=== PATIENT | male | born 1985 | race Caucasian/White ===

== ENCOUNTER 2018-02-13 14:09 | Emergency (ER) | payer BC, SELFPAY ==
[2018-02-13 14:11] VITALS: BP 139/104; PULSE 70; RESP 16; TEMP 36.4; O2SAT 98; BMI 31.9
--- NOTE | 2018-02-13 14:26 | EKG12_ITS ---
Test Reason : DIZZINESS Blood Pressure : / mmHG Vent. Rate : 075 BPM Atrial Rate : 075 BPM P-R Int : 144 ms QRS Dur : 084 ms QT Int : 374 ms P-R-T Axes : 034 058 034 degrees QTc Int : 417 ms Sinus rhythm with marked sinus arrhythmia Otherwise normal ECG Confirmed by CRISTINA SQUIRES ([id number]), assistant editor TOMMY SANTANA ([id number] on 02/15/2018 2:22:30 PM Referred By: KATIE Confirmed By:CRISTINA SQUIRES
[2018-02-13] MEDS: 0.9% Normal Saline 1,000 ML 1000 ML IV (14:30)
[2018-02-13 14:31] LABS: Bedside Glucose 121 mg/dL (70-110)
[2018-02-13 14:38] VITALS: BP 101/68; BP 111/81; BP 112/80; PULSE 71; PULSE 74; PULSE 76
[2018-02-13 14:54] LABS: Absolute Lymphocyte Count 1.91 X10^3/ul (0.83-4.51); Absolute Neutrophil Count 6.8 X10^3/uL (2.0-7.7); Basophil# 0.01 X10^3/uL; Basophil% 0.1 % (0-1); Eosinophil# 0.08 X10^3/uL; Eosinophils% 0.8 % (0-5); Hematocrit 47.2 % (40-54); Hemoglobin 16.7 g/dl (13.0-16.5); Lymphocyte # 1.91 X10^3/ul (4.0); Lymphocyte % 19.5 % (19-41); Mean Corp Hgb Conc 35.4 g/gl (32-36); Mean Corpuscular Hgb 31.6 pg (27.0-32.0); Mean Corpuscular Volume 89.2 fL (80-94); Mean Platelet Vol. 8.7 fl (6.2-12.0); Monocyte# 0.99 X10^3/uL; Monocyte% 10.1 % (0-10); Neutrophil # 6.78 X10^3/uL (2.7-7.7); Neutrophil % 69.4 % (47-70); POSITIVE COUNT NO; POSITIVE DIFFERENTIAL NO; POSITIVE MORPHOLOGY NO; Platelet Count 203 K/mm3 (150-450); RBC Distribution Width CV 11.8 % (11.6-14.6); RBC Distribution Width SD 37.9 fl (35.1-43.9); Red Blood Count 5.29 M/mm3 (4.6-6.2); White Blood Count 9.8 K/mm3 (4.4-11.0)
[2018-02-13 15:03] LABS: Anion Gap 7 (5-15); BUN 13 mg/dL (7-18); BUN/Creat Ratio 11.9 RATIO (10-20); Calcium,Total 8.2 mg/dL (8.5-10.1); Chloride 102 mmol/L (98-107); Creatinine, Serum 1.09 mg/dL (0.70-1.30); EST Glomerular Filtration Rate 84 mL/min (>60); Est Glom Filt Rate - Afr Amer 101 mL/min (>60); Glucose 121 mg/dL (74-106); Potassium 3.5 mmol/L (3.5-5.1); Sodium Level 137 mmol/L (136-145)
[2018-02-13 15:30] VITALS: BP 115/87; PULSE 70; RESP 17; O2SAT 98
--- NOTE | 2018-02-13 15:35 | ED.VISSUMM ---
- ER Visit Summary Date of Service: 02/13/18 Chief Complaint: Lightheaded History of Present Illness: The patient is a 32 M who goes to [facility] in [place]. Reports that he was driving down here and became lightheaded while he was driving. He actually reports that is improved with standing. He denies any chest pain, shortness of breath, or palpitations. Reports he does feel slightly nauseated. Complains of a headache that is 3 of 10 severity. He has had had similar headaches previously. His review of systems is otherwise negative. Physical Examination: Vitals: Stable. Afebrile. General: Well-nourished and well-developed. Head: Normocephalic atraumatic. Neck: Supple, no lymphadenopathy. No JVD. Nontender. Cardiovascular: Regular rate and rhythm. No murmurs. Respiratory: No respiratory distress. Clear to auscultation bilaterally. Abdominal: Soft, nontender, nondistended, normal bowel sounds. No guarding, rebound, or peritoneal signs. Back: Nontender. Extremities: Nontender, no edema. Skin: Normal color, no rash. Neurologic: Alert and oriented ?3. Cranial nerves II through XII are intact. Normal strength and sensation. Psych: Normal affect. Test Results: EKG shows sinus arrhythmia at a rate of 75 with no acute changes. CBC is marked for hemoglobin of 16.7. Chem-7 more for glucose 121 calcium 8.2. Emergency Department Course and Treatment: Patient had negative orthostatic vital signs. He is given a liter of normal saline and his symptoms resolved. Treatment Plan: Patient will be discharged instructions to push fluids. Follow-up his primary care physician 1-2 days if not improving. Return to the emergency department for any worsening symptoms. Disposition: To home in improved and stable condition. Impression: 1. Near syncope, uncertain cause. This note was generated with [employer] software. It may contain incorrect words, spelling, and punctuation that were not noted in review of the chart prior to signing ED Disposition - Plan for ED Patient: Disposition: Home or Assisted Living Chief Complaint: Dizziness Instructions: ED Near Syncope Unkn Referrals: Doctor,Your [STAFF PHYSICIAN] - 1-2 Days if not improving
[2018-02-13 15:42] VITALS: BP 113/76; PULSE 70; RESP 15; O2SAT 98
== END 2018-02-13 15:47 | disposition home or self-care (01) ==
PROVIDERS: Emergency Provider Emergency Medicine
DX: R55 Syncope and collapse (principal); R51 Headache; Z86.010 Personal history of colon polyps; F17.200 Nicotine dependence, unspecified, uncomplicated
CPT/HCPCS: 80048; 82962; 85025; 93005; 96360; 99285; J7030; A4216